=== PATIENT | male | born 1955 | race African-American/Black ===

== ENCOUNTER 2017-03-10 09:11 | Emergency (ER) | payer OTHER | END 2017-03-10 10:10 | disposition home or self-care (01) | LOC: CED 09:11 | DX: M10.9 Gout, unspecified (principal); I10 Essential (primary) hypertension; K21.9 Gastro-esophageal reflux disease without esophagitis; Z79.899 Other long term (current) drug therapy; Z87.891 Personal history of nicotine dependence | CPT/HCPCS: 99282 ==